=== PATIENT | male | born 1975 | race Caucasian/White ===

== ENCOUNTER 2022-02-13 03:16 | Emergency (ER) | payer OTHER ==
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
[2022-02-13 03:46] LABS: BASOPHILS % (AUTO) 0.9 %; EOSINOPHILS # (AUTO) 0.1 10^3/uL (0.0-0.7); HCT - HEMATOCRIT 45.4 % (42.0-52.0); HGB - HEMOGLOBIN 15.3 g/dL (14.0-18.0); LYMPHOCYTES # (AUTO) 1.7 10^3/uL (1.5-3.5); LYMPHOCYTES % (AUTO) 37.5 %; MEAN CORPUSCULAR HEMOGLOBIN 29.5 pg (27.0-31.0); MEAN CORPUSCULAR HGB CONC 33.7 g/dL (32.0-36.0); MEAN CORPUSCULAR VOLUME 87.6 fL (80.0-94.0); MEAN PLATELET VOLUME 8.4 fL (7.4-11.4); MONOCYTES # (AUTO) 0.5 10^3/uL (0.0-1.0); NEUTROPHILS # (AUTO) 2.3 10^3/uL (1.5-6.6); NEUTROPHILS % (AUTO) 49.2 %; PLT - PLATELET COUNT 285 10^3/uL (130-450); RED BLOOD COUNT 5.18 10^6/uL (4.70-6.10); RED CELL DISTRIBUTION WIDTH 13.7 % (12.0-15.0); WHITE BLOOD COUNT 4.6 x10^3/uL (4.8-10.8)
[2022-02-13 03:57] LABS: ALBUMIN/GLOBULIN RATIO 1.4 (1.0-2.2); BILIRUBIN,TOTAL 0.8 mg/dL (0.2-1.0); CALCIUM 8.9 mg/dL (8.5-10.3); CREATININE 0.9 mg/dL (0.6-1.2); POTASSIUM 3.5 mmol/L (3.5-5.0); TOTAL PROTEIN 6.8 g/dL (6.7-8.2)
[2022-02-13 06:12] VITALS: BP 121/85
--- NOTE | 2022-02-13 08:36 | XRAY Report ---
PROCEDURE: Chest 2 View X-Ray INDICATIONS: chest pain TECHNIQUE: 2 view(s) of the chest. COMPARISON: None. FINDINGS: Surgical changes and devices: None. Lungs and pleura: No pleural effusions or pneumothorax. Lungs are clear. Mediastinum: Mediastinal contours are normal. Heart size is normal. Bones and chest wall: Mild dextroconvex scoliotic curvature is seen. No suspicious bony abnormaliti es. Mild superior endplate deformity is seen of the T8 level, without acute features. Soft tissues ap pear unremarkable. IMPRESSION: No acute cardiopulmonary abnormality is seen. Mild T8 superior endplate compression deformity. If it would be helpful for clinical management decision making, please consider a dedicated chest CT for further evaluation. Note: No significant discrepancy from the preliminary report. Reviewed by: Quique Petty MD on 02/13/2022 7:35 AM [facility] Approved by: Quique Petty MD on 02/13/2022 7:35 AM [facility] Station ID: [id number]
== END 2022-02-13 06:12 | disposition home or self-care (01) ==
LOC: ED 03:16
DX: R07.9 Chest pain, unspecified (principal)
CPT/HCPCS: 36415; 80053; 83690; 84484; 85025; 93005; 99284